=== PATIENT | female | born 1985 | race Caucasian/White ===

== ENCOUNTER → 2020-12-31 11:06 | Outpatient (BNVA) | payer OTHER, SELFPAY | PROVIDERS: Visit Provider Internal Medicine | DX: M54.2 Cervicalgia (principal); M54.6 Pain in thoracic spine; M54.5 Low back pain; T14.8XXA Other injury of unspecified body region, initial encounter; V89.2XXA Person injured in unspecified motor-vehicle accident, traffic, initial encounter | CPT/HCPCS: 99202; 99203 ==

== ENCOUNTER → 2021-01-03 11:02 | Outpatient (BNVA) | payer OTHER, SELFPAY | PROVIDERS: Visit Provider Internal Medicine | DX: S39.012A Strain of muscle, fascia and tendon of lower back, initial encounter (principal); S16.1XXA Strain of muscle, fascia and tendon at neck level, initial encounter; V89.2XXA Person injured in unspecified motor-vehicle accident, traffic, initial encounter | CPT/HCPCS: 99214 ==

== ENCOUNTER → 2021-01-10 10:13 | Outpatient (BNVA) | payer OTHER, SELFPAY | PROVIDERS: Visit Provider Internal Medicine | DX: S06.0X0A Concussion without loss of consciousness, initial encounter (principal); S13.4XXA Sprain of ligaments of cervical spine, initial encounter; V89.2XXA Person injured in unspecified motor-vehicle accident, traffic, initial encounter | CPT/HCPCS: 99214 ==

== ENCOUNTER → 2021-01-17 11:35 | Outpatient (BNVA) | payer OTHER, SELFPAY | PROVIDERS: Visit Provider Internal Medicine | DX: S13.4XXA Sprain of ligaments of cervical spine, initial encounter (principal); S06.0X0A Concussion without loss of consciousness, initial encounter; V89.2XXA Person injured in unspecified motor-vehicle accident, traffic, initial encounter; R51.9 Headache, unspecified; H53.149 Visual discomfort, unspecified | CPT/HCPCS: 70450; 99214 ==

== ENCOUNTER → 2021-01-24 13:33 | Outpatient (BNVA) | payer OTHER, SELFPAY | PROVIDERS: Visit Provider Internal Medicine | DX: S06.9X0D Unspecified intracranial injury without loss of consciousness, subsequent encounter (principal); S29.012D Strain of muscle and tendon of back wall of thorax, subsequent encounter; V89.2XXD Person injured in unspecified motor-vehicle accident, traffic, subsequent encounter | CPT/HCPCS: 99213 ==

== ENCOUNTER → 2021-02-11 13:44 | Outpatient (BNVA) | payer OTHER, SELFPAY | PROVIDERS: Visit Provider Internal Medicine | DX: S06.9X0D Unspecified intracranial injury without loss of consciousness, subsequent encounter (principal); S29.012D Strain of muscle and tendon of back wall of thorax, subsequent encounter; S39.012D Strain of muscle, fascia and tendon of lower back, subsequent encounter; V89.2XXD Person injured in unspecified motor-vehicle accident, traffic, subsequent encounter | CPT/HCPCS: 99213 ==

== ENCOUNTER → 2021-02-28 11:44 | Outpatient (BNVA) | payer OTHER, SELFPAY | PROVIDERS: Visit Provider Internal Medicine | DX: M54.5 Low back pain (principal) | CPT/HCPCS: 99213 ==

== ENCOUNTER 2021-03-10 17:56 | Outpatient (REF) | payer OTHER, SELFPAY ==
--- NOTE | ~2021-03-10 | MR_ITS ---
EXAMINATION: MR LUMBAR SPINE WITHOUT CONTRAST CLINICAL INFORMATION: Left buttocks pain. COMPARISON: None TECHNIQUE: MRI of the lumbar spine was obtained using routine sequences without contrast. FINDINGS: VERTEBRAL BODIES AND PARASPINAL STRUCTURES: The marrow signal is within normal limits. There is [id number] disc space narrowing with mild disc bulges and endplate spurring at the lower thoracic levels. No compression fractures are seen. Mild retrosubluxation and disc degeneration evident at the L5-S1 level. The paraspinal soft tissues are unremarkable. The imaged bony pelvis appears normal. CONUS MEDULLARIS AND CAUDA EQUINA: Normal, terminating at the level of L1. No lower cord signal abnormality is seen. The cauda equina nerve roots are normal. SPINAL LEVELS: L1-L2: Mild disc bulge and mild central canal stenosis without foraminal encroachment. Anterior endplate spurring. L2-L3 AND L3-L4: Well hydrated normal appearance of the discs without central canal stenosis or foraminal encroachment. L4-L5: Small central disc protrusion and left lateralized disc bulge with moderate left foraminal encroachment. No central canal stenosis. Hypertrophic facet arthropathy noted. L5-S1: Mild disc degeneration and retrosubluxation with a posterior disc bulge and annular fissure. Hypertrophic facet arthropathy without central canal stenosis. Mild bilateral foraminal narrowing. MR/MR lumbar spine wo con IMPRESSION: 1. Mild degenerative disc bulge, endplate spurring and mild central canal stenosis at the L1-L2 level. 2. Small central disc protrusion and left posterolateral disc bulge with facet arthropathy at L4-L5 resulting in moderate left foraminal encroachment. 3. Mild disc degeneration, a posterior annular fissure, and retrosubluxation at L5-S1 with mild bilateral foraminal narrowing.
== END 2021-03-10 17:57 | disposition home or self-care (01) ==
LOC: HO.MRI 17:56
PROVIDERS: Visit Provider Internal Medicine
DX: M54.5 Low back pain (principal); R52 Pain, unspecified
CPT/HCPCS: 72148

== ENCOUNTER → 2021-03-11 13:20 | Outpatient (BNVA) | payer OTHER, SELFPAY | PROVIDERS: Visit Provider Internal Medicine | DX: M54.5 Low back pain (principal) | CPT/HCPCS: 99213 ==

== ENCOUNTER → 2021-03-20 12:47 | Outpatient (BNVA) | payer OTHER, SELFPAY | PROVIDERS: Visit Provider Internal Medicine | DX: M54.5 Low back pain (principal); M51.36 Other intervertebral disc degeneration, lumbar region; M47.816 Spondylosis without myelopathy or radiculopathy, lumbar region | CPT/HCPCS: 99213 ==

== ENCOUNTER → 2021-04-10 15:19 | Outpatient (BNVA) | payer OTHER, SELFPAY | PROVIDERS: Visit Provider Internal Medicine | DX: S39.012D Strain of muscle, fascia and tendon of lower back, subsequent encounter (principal); X58.XXXD Exposure to other specified factors, subsequent encounter; M51.36 Other intervertebral disc degeneration, lumbar region | CPT/HCPCS: 99213 ==